=== PATIENT | female | born 1960 | race Caucasian/White ===

== ENCOUNTER 2020-05-17 17:09 | Emergency (ER) | payer MEDICAID, OTHER ==
[~2020-05-17] VITALS: Ht 167.6 cm; Wt 83.9 kg
--- NOTE | 2020-05-17 17:26 | NUR ---
at bedside for assessment
--- NOTE | 2020-05-17 18:03 | NUR ---
ultrasound noted in room at this time
[2020-05-17 18:36] VITALS: BP 125/87
--- NOTE | 2020-05-17 19:32 | NUR ---
Assumed care for pt at this time, full report received from Ana Lilia DUNN. Pt is resting well in bed. Still verbalizes discomfort on R arm at this time. ADENIKE reports came in, patient noted with thrombus on R arm. Dr Paige made aware, new orders placed. Side rails up x 2 for safety. Bed locked in place.
--- NOTE | 2020-05-17 20:00 | NUR ---
Laboratory samples sent to lab. EKG Done. Pt c/o chest tightness and slight SOB, placed on 2LPM of O2 via NC for comfort. Notified Dr. Paige. No new orders for now. is reviewing chart.
[2020-05-17 20:02] LABS: BASOPHILS # (AUTO) 0.1 K/uL (0.0-8.0); EOSINOPHILS # (AUTO) 0.5 K/uL (0.0-0.7); EOSINOPHILS % (AUTO) 5.3 % (0.0-7.0); HEMATOCRIT 37.3 % (31.2-41.9); HEMOGLOBIN 12.7 g/dL (10.9-14.3); LYMPHOCYTES # (AUTO) 3.1 K/uL (20.0-40.0); LYMPHOCYTES % (AUTO) 35.4 % (20.5-51.5); MEAN CORPUSCULAR HGB CONC 34 g/dL (32.3-35.6); MEAN CORPUSCULAR VOLUME 90.9 fL (75.5-95.3); MONOCYTES # (AUTO) 0.5 K/uL (2.0-10.0); MONOCYTES % (AUTO) 5.9 % (0.0-11.0); NEUTROPHILS # (AUTO) 4.5 K/uL (1.8-8.9); NEUTROPHILS % (AUTO) 52.4 % (38.5-71.5); PLATELET COUNT (AUTO) 298 K/uL (179-408); WHITE BLOOD COUNT (AUTO) 8.7 K/uL (3.8-11.8)
[2020-05-17 20:11] LABS: CREATININE 0.8 mg/dL (0.6-1.3)
[2020-05-17 20:17] LABS: BILIRUBIN,TOTAL 0.3 mg/dL (0.2-1.0); TOTAL PROTEIN, SERUM 7.1 g/dL (6.4-8.2)
[2020-05-17 20:25] LABS: THYROID STIMULATING HORMONE 0.027 mIU/mL (0.358-3.740)
[2020-05-17] MEDS ORDERED: IV NORMAL SALINE 1000 ML BAG IV ONE (20:45)
[2020-05-17] MEDS ORDERED: SWABABLE VALVE TRANSFER SET EA MC ONE (20:50)
[2020-05-17] MEDS ORDERED: IOHEXOL 350 100 ML INFUS..BTL ONE (20:50)
[2020-05-17] MEDS ORDERED: IV NORMAL SALINE 250 ML IV ONE (20:50)
--- NOTE | 2020-05-17 21:15 | NUR ---
Dr. Paige aware that patient is being transferred to [facility] due to Insurance reasons. Dr. Kelley awaiting his call for MD to MD panel call.
--- NOTE | 2020-05-17 22:00 | NUR ---
COVID 19 antigen sample sent to lab.
--- NOTE | 2020-05-17 22:52 | NUR ---
COVID 19 antigen negative, [facility] made aware, pending call back for admission information.
--- NOTE | 2020-05-17 23:29 | NUR ---
Still pending transfer information from [facility]. Pt is resting in bed, no signs of acute distress. Verbalizes headache of 09/23, MD made aware. Pending orders. VS monitored and remains stable.
[2020-05-17] MEDS ORDERED: MORPHINE SULFATE 4 MG/1 ML DISP.SYRIN ONE (23:43)
[2020-05-17] MEDS ORDERED: ONDANSETRON 4 MG/2 ML VIAL ONE (23:43)
[2020-05-17] MEDS ORDERED: MORPHINE SULFATE 4 MG/1 ML DISP.SYRIN IV ONE (23:45)
[2020-05-17] MEDS ORDERED: ONDANSETRON 4 MG/2 ML VIAL IV ONE (23:45)
--- NOTE | 2020-05-17 23:55 | NUR ---
Received call from Raisa - Apprentice Painter Hand from [facility]. Admission information as follows; [facility] [address] Room [address] Warren Cruz (fence erector supervisor) - [phone] For transporation, was instructed to call ([facility]) who will provide information about ambulances available.
--- NOTE | 2020-05-18 | NUR ---
S/w Tat from [facility] who provided the: Authorization Number: [id number].
--- NOTE | 2020-05-18 00:02 | NUR ---
[facility] contacted for BLS warehouse order picker, latest is at 0730.
--- NOTE | 2020-05-18 00:05 | NUR ---
S/any [place] from [facility] [phone] - ETA 30-40 minutes
--- NOTE | 2020-05-18 00:12 | NUR ---
Vince RN ([phone]) given report about patient, aware of ETA.
--- NOTE | 2020-05-18 00:37 | NUR ---
Pt remains stable, VS recorded accordingly. No signs of distress. L FA 20 G IV infiltrated, noted with swelling. IV DC'ed and ice applied. Inserted new IV on L AC 18 G, blood return good, and flushed with no adverse reactions. Pt is ready for transfer, awaiting ambulance.
--- NOTE | 2020-05-18 01:05 | NUR ---
Report given to [facility] bag mender, patient picked up by two EMT, left in stable condition.
== END 2020-05-18 01:13 | disposition short-term general hospital (02) ==
LOC: ER 17:11
DX: I82.611 Acute embolism and thrombosis of superficial veins of right upper extremity (principal); Z20.822 Contact with and (suspected) exposure to COVID-19; M06.9 Rheumatoid arthritis, unspecified; E03.9 Hypothyroidism, unspecified; J98.11 Atelectasis; K81.0 Acute cholecystitis; M79.601 Pain in right arm; F32.9 Major depressive disorder, single episode, unspecified; N20.0 Calculus of kidney
CPT/HCPCS: 36415; 71045; 71275; 80053; 84436; 84443; 84484; 85025; 85610; 85730; 87426; 93005; 93970; 96361; 96374; 96375; 99285; J2270; J2405; Q9967; 70030-TC; A4663; J7050